=== PATIENT | female | born 1955 | race Caucasian/White ===

== ENCOUNTER 2017-01-22 12:31 | Emergency (ER) | payer MEDICAID, MEDICARE ==
[2017-01-22 12:42] VITALS: BP 121/82; PULSE 101; RESP 18; TEMP 99.3; O2SAT 97; BMI 27.9
--- NOTE | 2017-01-22 12:48 | C.PDOC ---
History Of Present Illness 61 y/o female with hx of lymphoma in 2013, treatment completed, c/o cough with yellow sputum x 3 days, temp to 100.9 at home, upper back pain with cough, mild sore throat (irritated feeling) and mild rhinorrhea. pt with occasional sob with coughing, not at present. Time Seen by Provider: 01/22/17 12:42 Chief Complaint (Nursing): Fever Past Medical History Reviewed: Historical Data, Nursing Documentation, Vital Signs Vital Signs: Last Vital Signs Temp 99.3 F 01/22/17 12:36 Pulse 101 H 01/22/17 12:36 Resp 18 01/22/17 12:36 BP 121/82 01/22/17 12:36 Pulse Ox 97 01/22/17 13:03 - Medical History PMH: Anemia Denies: Chronic Kidney Disease Other PMH: lymphoma Surgical History: No Surg Hx - [facility] Procedures C.A.T. SCAN OF THORAX (01/29/14) PERCUTAN NEEDLE BX OF MEDIASTINAL (01/29/14) Family History: States: Unknown Family Hx - Social History Hx Tobacco Use: No Hx Alcohol Use: No Hx Substance Use: No - Immunization History Hx Tetanus Toxoid Vaccination: No Hx Influenza Vaccination: No Hx Pneumococcal Vaccination: No Review Of Systems Constitutional: Positive for: Fever, Chills Eyes: Negative for: Pain, Vision Change ENT: Positive for: Nose Discharge, Nose Congestion, Throat Pain. Negative for: Ear Pain, Nose Pain, Throat Swelling Cardiovascular: Negative for: Chest Pain, Palpitations Respiratory: Positive for: Cough, Pleuritic Pain, Sputum (yellow) Gastrointestinal: Negative for: Nausea, Vomiting, Abdominal Pain Genitourinary: Negative for: Dysuria, Frequency Musculoskeletal: Positive for: Back Pain (upper, with cough) Physical Exam - Physical Exam Appears: Non-toxic, No Acute Distress Skin: Normal Color, Warm, Dry Head: Atraumatic, Normacephalic Eye(s): bilateral: Normal Inspection Nose: Discharge Oral Mucosa: Moist Tongue: Normal Appearing Lips: Normal Appearing Throat: Erythema (mild erythema, no tonsillar enlargement), No Exudate, No Drooling, No Mass Neck: Normal ROM Chest: Symmetrical, No Deformity, No Tenderness Cardiovascular: Rhythm Regular (tachy at 100) Respiratory: Decreased Breath Sounds (mild decreased bs in right mid-lung), No Wheezing Gastrointestinal/Abdominal: Soft, No Tenderness, No Guarding, No Rebound Neurological/Psych: Oriented x3, Normal Speech, Normal Cognition, Normal Motor, Normal Sensation ED Course And Treatment O2 Sat by Pulse Oximetry: 97 Medical Decision Making Medical Decision Makin61 y/o fmeale with temp at home, cough with yellow sputum and back pain with cough; cxr to r/o infliltrate Disposition Counseled Patient/Family Regarding: Diagnosis, Need For Followup - Disposition Referrals: Sergio Lea MD [Medical Doctor] - Disposition: HOME/ ROUTINE Disposition Time: 13:41 Condition: STABLE Additional Instructions: Follow up with Dr Lea in 1-2 days. Drink increased fluids. Avoid dairy foods. Take antibiotics as directed. Tylenol or Motrin for pain and fever. Return to ER for any worsening symptoms. Prescriptions: Azithromycin [Z-Geovani] 250 mg PO DAILY #6 tab Forms: [facility] Discharge Inst [place] - Clinical Impression Clinical Impression: Upper respiratory tract infection
--- NOTE | 2017-01-22 16:39 | RAD ---
HISTORY: cough yellow sputum and back pain COMPARISON: No prior. TECHNIQUE: Chest PA and lateral FINDINGS: LUNGS: No active pulmonary disease. PLEURA: No significant pleural effusion identified. No pneumothorax apparent. CARDIOVASCULAR: Normal. OSSEOUS STRUCTURES: Mild thoracic dextroscoliosis. VISUALIZED UPPER ABDOMEN: Normal. OTHER FINDINGS: None. IMPRESSION: No active disease.
== END 2017-01-22 13:53 | disposition home or self-care (01) ==
LOC: C.ER 12:31
DX: J06.9 Acute upper respiratory infection, unspecified (principal)

== ENCOUNTER 2017-11-05 13:44 | Emergency (ER) | payer MEDICARE, MEDICAID ==
[2017-11-05 14:12] VITALS: BMI 27.3
[2017-11-05 14:16] VITALS: TEMP 98.6; O2SAT 97
--- NOTE | 2017-11-05 15:22 | C.PDOC ---
History Of Present Illness 62 year old female presents to the emergency department with a complaint of having flu-symptoms x2 weeks. Symptoms include headache, sore throat, body aches , cough, and sputum. Reports only taking cough medication for symptoms. Denies any further medical complaints. Of note, patient had Lymphoma Cancer (had resolved since) but states she always gets a chest infection after the flu. Time Seen by Provider: 11/05/17 15:22 Chief Complaint (Nursing): Flu-like Symptoms History Per: Patient History/Exam Limitations: no limitations Onset/Duration Of Symptoms: Days (x2 weeks) Current Symptoms Are (Timing): Still Present Past Medical History Reviewed: Historical Data, Nursing Documentation, Vital Signs Vital Signs: Last Vital Signs Temp 98.6 F 11/05/17 14:11 Pulse 101 H 11/05/17 14:11 Resp 20 11/05/17 14:11 BP 126/78 11/05/17 14:11 Pulse Ox 97 11/05/17 15:41 - Medical History PMH: Anemia Denies: Chronic Kidney Disease Other PMH: Lymphoma Cancer (had resolved since) Surgical History: No Surg Hx - [facility] Procedures C.A.T. SCAN OF THORAX (01/29/14) PERCUTAN NEEDLE BX OF MEDIASTINAL (01/29/14) Family History: States: Unknown Family Hx - Social History Hx Tobacco Use: No Hx Alcohol Use: No Hx Substance Use: No - Immunization History Hx Tetanus Toxoid Vaccination: No Hx Influenza Vaccination: No Hx Pneumococcal Vaccination: No Review Of Systems Except As Marked, All Systems Reviewed And Found Negative. (As per HPI, otherwise negative) Constitutional: Positive for: Other (body aches) ENT: Positive for: Throat Pain Respiratory: Positive for: Cough, Sputum Neurological: Positive for: Headache Physical Exam - Physical Exam Appears: Well, Non-toxic, Toxic Skin: Normal Color, Warm, Dry Head: Atraumatic, Normacephalic Cardiovascular: Rhythm Regular, No Murmur Respiratory: Normal Breath Sounds, No Decreased Breath Sounds, No Accessory Muscle Use, No Wheezing Neurological/Psych: Oriented x3 (Alert) ED Course And Treatment O2 Sat by Pulse Oximetry: 97 (RA) Pulse Ox Interpretation: Normal - Radiology CXR: Interpreted by Me (Chest x-ray looks normal and shows no acute findings. ) Disposition - Disposition Referrals: Sergio Lea MD [Medical Doctor] - Disposition: HOME/ ROUTINE Disposition Time: 15:41 Condition: GOOD Additional Instructions: Please follow up with your doctor. Return to the ER for any worsening symptoms or for any other concerns. Prescriptions: Azithromycin 250 mg PO DAILY #6 tab Forms: [facility] Discharge Inst [place], [facility] (Belarusian) Print Language: GREENLANDIC - Clinical Impression Clinical Impression: Upper respiratory infection, Cough
[2017-11-05 15:50] VITALS: BP 125/70; PULSE 90; RESP 18
--- NOTE | 2017-11-05 18:24 | RAD ---
HISTORY: cough COMPARISON: Comparison is made with 01/22/2017 TECHNIQUE: Chest PA and lateral FINDINGS: LUNGS: No evidence of new infiltrate or consolidation in the lungs. PLEURA: No significant pleural effusion identified. No pneumothorax apparent. CARDIOVASCULAR: Normal. OSSEOUS STRUCTURES: No significant abnormalities. VISUALIZED UPPER ABDOMEN: Normal. OTHER FINDINGS: None. IMPRESSION: No radiographic evidence of pneumonia.
== END 2017-11-05 15:40 | disposition home or self-care (01) ==
LOC: C.ER 13:44
DX: J06.9 Acute upper respiratory infection, unspecified (principal); R05 Cough

== ENCOUNTER 2019-01-31 08:37 | Outpatient (CLI) | payer MEDICARE, MEDICAID | END 2019-01-31 08:38 | disposition home or self-care (01) | LOC: C.MAMMO 08:38 | DX: Z12.31 Encounter for screening mammogram for malignant neoplasm of breast (principal); R76.11 Nonspecific reaction to tuberculin skin test without active tuberculosis; M54.9 Dorsalgia, unspecified; M51.34 Other intervertebral disc degeneration, thoracic region ==